=== PATIENT | female | born 1985 | race Caucasian/White ===

== ENCOUNTER 2024-08-27 11:44 | Outpatient (CLI) | payer BC, SELFPAY | END 2024-08-27 11:45 | disposition home or self-care (01) | LOC: LBO 11:46 | PROVIDERS: PCP Obstetrics & Gynecology; Visit Provider Obstetrics & Gynecology | DX: O20.9 Hemorrhage in early pregnancy, unspecified (principal) | CPT/HCPCS: 36415; 84144; 84702 ==

== ENCOUNTER 2024-08-29 11:35 | Outpatient (CLI) | payer BC, SELFPAY | END 2024-08-29 11:36 | disposition home or self-care (01) | LOC: LBO 11:35 | PROVIDERS: PCP Obstetrics & Gynecology; Visit Provider Obstetrics & Gynecology | DX: O26.851 Spotting complicating pregnancy, first trimester (principal) | CPT/HCPCS: 36415; 84702 ==

== ENCOUNTER 2024-09-30 01:59 | Outpatient (CLI) | payer BC, SELFPAY ==
[2024-09-30 16:11] LABS: Abs Immature Grans 0.03 10^3/uL (0.0-0.06); HCT 39.3 % (36.0-46.0); HGB 13.7 g/dL (11.2-15.7); Immature Grans % 0.3 %; MCH 31.8 pg (27.0-33.0); MCHC 34.9 % (32.0-36.0); MCV 91 fL (80-95); MPV 9.7 fL (8.0-11.0); Platelet Count 298 10^3/uL (130-400); RBC 4.31 10^6/uL (3.93-5.22); RDW 11.9 % (11.7-14.6); RDW-SD 39.5 fL; WBC 11.38 10^3/uL (4.4-10.8)
[2024-09-30 16:27] LABS: Hemoglobin A1C 5.4 % (<5.7)
[2024-09-30 17:12] LABS: ALT 34 U/L (14-59); AST 19 U/L (15-37); Albumin 3.7 g/dL (3.4-5.0); Alkaline Phosphatase 82 U/L (46-116); Anion Gap 6.8 mmol/L (3-11); BUN 9 mg/dL (7-18); Bilirubin, Total 0.3 mg/dL (0.2-1.0); CO2 28.2 mmol/L (21.0-32.0); Calcium 9.2 mg/dL (8.5-10.1); Chloride 102 mmol/L (98-107); Estimated GFR 117.75 (mL/min/1.73m2); Glucose 97 mg/dL (74-106); Potassium 4.0 mmol/L (3.5-5.1); Sodium 137 mmol/L (136-145); Total Protein 7.6 g/dL (6.4-8.2)
[2024-10-01 19:31] LABS: HIV-1/2 Ag & Ab Screen Negative (Negative); Hepatitis C Ab w Rflx HCV PCR Negative (Negative)
[2024-10-02 11:43] LABS: Rubella IgG Ab (UVM) Positive (See Note)
[2024-10-04 15:13] LABS: Syphilis IgG w/Reflex Nonreactive (Nonreactive)
== END 2024-09-30 02:00 | disposition home or self-care (01) ==
LOC: LBO 01:59
PROVIDERS: PCP Obstetrics & Gynecology; Visit Provider Advanced Practice Midwife
DX: Z34.91 Encounter for supervision of normal pregnancy, unspecified, first trimester (principal)
CPT/HCPCS: 36415; 80053; 86787; 86803; 86850; 86900; 86901; 87340; 87389; 83036; 85025; 86762; 86780

== ENCOUNTER 2024-09-30 13:57 | Outpatient (REF) | payer BC, SELFPAY ==
[2024-10-02 11:27] LABS: Chlamydia Result Negative (Negative); GC Result Negative (Negative)
== END 2024-09-30 13:58 | disposition home or self-care (01) ==
LOC: LBN 13:57
PROVIDERS: PCP Obstetrics & Gynecology; Visit Provider Advanced Practice Midwife
DX: Z34.91 Encounter for supervision of normal pregnancy, unspecified, first trimester (principal)
CPT/HCPCS: 87491; 87591; 87086

== ENCOUNTER 2025-01-01 01:26 | Outpatient (CLI) | payer BC, SELFPAY ==
--- NOTE | 2025-01-01 08:30 | DI.US_ITS ---
Exam(s) US OB TAIWO WEIGHT EXAM: US OB TAIWO WEIGHT CLINICAL HISTORY: growth,uterine scar from previous surgery affecting preg,O34.29. TECHNIQUE: Transabdominal obstetrical ultrasound performed. COMPARISON: US POCUS EXAM from 09/03/2024 Report from exam performed at [facility] [place] 2024. No images are available. FINDINGS:: Number of fetuses: 1 position: Cephalic Placental location: Bilobed, anterior and posterior. Grade 2. no evidence of previa. Two anterior fibroids are noted, 1 measuring 4.7 x 3.1 x 3.2 cm and the other measuring 2.6 x 1.7 x 2.5 cm. BIOMETRIC DATA: BPD: 61 mm = 25+ 0 HC: 237 mm = 25+5 AC: 217 mm = 26+ 1 FL: 43 mm = 24+ 2 EFW: 802 grams, 87th percentile, Composite Age: 20 5+2 weeks SUYAPA: 14 April 2025 Heart Rate: 151 Amniotic fluid index: 18.5. Visually, amount of fluid is within normal limits. IMPRESSION: size and weight are within the expected range. A bilobed percent is noted with components anteriorly and posteriorly. The placenta is otherwise unremarkable. DATA REPOSITORY:
== END 2025-01-01 01:46 ==
PROVIDERS: PCP Nurse Practitioner; Visit Provider Obstetrics & Gynecology
DX: O34.29 Maternal care due to uterine scar from other previous surgery (principal)
CPT/HCPCS: 76816

== ENCOUNTER 2025-01-16 01:26 | Outpatient (CLI) | payer BC, SELFPAY ==
[2025-01-16 15:34] LABS: Abs Immature Grans 0.19 10^3/uL (0.0-0.06); HCT 33.0 % (36.0-46.0); HGB 11.3 g/dL (11.2-15.7); Immature Grans % 1.3 %; MCH 32.1 pg (27.0-33.0); MCHC 34.2 % (32.0-36.0); MCV 94 fL (80-95); MPV 9.2 fL (8.0-11.0); Platelet Count 265 10^3/uL (130-400); RBC 3.52 10^6/uL (3.93-5.22); RDW 12.9 % (11.7-14.6); RDW-SD 44.1 fL; WBC 14.55 10^3/uL (4.4-10.8)
[2025-01-16 15:53] LABS: Glucose,1 Hr (Glucola) 177 mg/dL (80-140)
== END 2025-01-16 01:27 | disposition home or self-care (01) ==
LOC: LBO 01:27
PROVIDERS: PCP Nurse Practitioner; Visit Provider Obstetrics & Gynecology
DX: Z34.93 Encounter for supervision of normal pregnancy, unspecified, third trimester (principal)
CPT/HCPCS: 36415; 82950; 85025

== ENCOUNTER 2025-01-24 02:38 | Outpatient (CLI) | payer BC, SELFPAY | END 2025-01-24 02:39 | disposition home or self-care (01) | LOC: LBO 02:38 | PROVIDERS: PCP Nurse Practitioner; Visit Provider Obstetrics & Gynecology | DX: Z34.92 Encounter for supervision of normal pregnancy, unspecified, second trimester (principal) | CPT/HCPCS: 36415; 82951 ==

== ENCOUNTER → 2025-02-05 01:31 | Outpatient (CLI) | payer BC, SELFPAY ==
--- NOTE | 2025-02-05 12:30 | DI.US_ITS ---
Exam(s) US OB TAIWO WEIGHT EXAM: US OB TAIWO WEIGHT CLINICAL HISTORY: abnormal placenta,O43.109. TECHNIQUE: Transabdominal obstetrical ultrasound performed. COMPARISON: US US OB TAIWO WEIGHT from 01/01/2025 FINDINGS: Number of fetuses: 1 position: BREECH Placental location: There is a grade 1 placenta. The placenta is bilobed with component seen anteriorly and posteriorly. There is a marginal cord insertion site. The cord inserts 9 mm from the edge of the posterior placental component. No evidence of previa. Note is again made of an anterior uterine fibroid. BIOMETRIC DATA: BPD: 7.68cm, 30weeks 6days HC: 28.19cm, 30weeks 6days AC: 26.43cm, 30weeks 4days FL: 5.76cm, 30weeks 1day EFW: 1,581.51g, 3lb 8.47oz, 79.9% Composite Age: 30weeks 4days SUYAPA: 04/12/2024 Heart Rate: 138bpm Amniotic fluid index: 19.7cm. The largest pocket measures 5.9 cm. IMPRESSION: 1. Single live intrauterine gestation as above. 2. Estimated weight is 1582gms. This is the 80th percentile. 3. Amniotic fluid index is 20 cm. The largest pocket measures 5.9 cm. 4. There is a bilobed placenta again noted with both anterior and posterior components. 5. There is a marginal cord insertion site onto the posterior placental component. DATA REPOSITORY:
== END ==
PROVIDERS: PCP Nurse Practitioner; Visit Provider Obstetrics & Gynecology
DX: O43.103 Malformation of placenta, unspecified, third trimester (principal); Z3A.30 30 weeks gestation of pregnancy
CPT/HCPCS: 76816

== ENCOUNTER → 2025-02-26 00:20 | Outpatient (CLI) | payer BC, SELFPAY ==
--- NOTE | 2025-02-26 07:30 | DI.US_ITS ---
Exam(s) US OB TAIWO WEIGHT EXAM: US OB TAIWO WEIGHT CLINICAL HISTORY: Growth/fluid, advanced maternal age, gest diabetes, abnl placenta. TECHNIQUE: Transabdominal obstetrical ultrasound performed. COMPARISON: US US OB TAIWO WEIGHT from 02/05/2025 FINDINGS:: Number of fetuses: 1 position: BREECH Placental location: BILOBED. No evidence of previa. BIOMETRIC DATA: BPD: 8.55cm mm = 34weeks 3days, 93 percent HC: 31.8cm mm = 35weeks 5days, 93 percentile AC: 32.02cm mm = 36weeks greater than 97th percentile FL: 5.97cm mm = 31weeks 1day, 11th percentile EFW: 2,447.22g, 5lb 9.1oz, 95.6% Composite Age: 34weeks 2days SUYAPA: 04/07/2024 Heart Rate: 144bpm Amniotic fluid index: 18.9cm. Visually, amount of fluid is within normal limits. Anterior uterine fibroid again noted. Marginal cord insertion and is again noted. IMPRESSION: size is measuring 2 weeks greater than gestational age. weight is at the 96th percentile. DATA REPOSITORY:
== END ==
LOC: DI 00:20
PROVIDERS: PCP Nurse Practitioner; Visit Provider Obstetrics & Gynecology
DX: Z34.93 Encounter for supervision of normal pregnancy, unspecified, third trimester (principal); O26.23 Pregnancy care for patient with recurrent pregnancy loss, third trimester; O34.33 Maternal care for cervical incompetence, third trimester; O24.419 Gestational diabetes mellitus in pregnancy, unspecified control; O43.103 Malformation of placenta, unspecified, third trimester
CPT/HCPCS: 76816

== ENCOUNTER 2025-03-05 07:43 | Outpatient (CLI) | payer BC, SELFPAY ==
[2025-03-05 12:49] VITALS: BP 124/87; PULSE 95; TEMP 36.5
[2025-03-05 12:58] VITALS: BP 124/87; PULSE 95
[2025-03-05 13:09] VITALS: BP 124/87; PULSE 95; TEMP 36.6
[2025-03-05 13:34] VITALS: BP 124/87; PULSE 95
--- NOTE | 2025-03-05 13:34 | W.OBNST ---
Date of service: 03/05/25 Time of Service: 13:34 NST Evaluation Reason for NST Reasons for Nonstress Test: GDM-INSULIN and ADVANCED MATERNAL AGE Gestational Age Gestational Age in Weeks and Days: 33 Weeks and 2Days Test and Monitor Explained Test/Monitor Explained: Test Explained, Monitor Explained and Patient Verbalized Understanding Vital Signs Blood Pressure: 124/87 Pulse: 95 NST Information Date on Monitor: 03/05/25 Time on Monitor: 12:52 NST Interventions: PO Hydration Contraction Frequency: 2-5 NST Evaluation Patient States Movement: Present Variability: Moderate 6-25 bpm Accelerations: 15x15 Note Ultrasound Done: N/A. NST Note Note: Category 1, reactive NST. Occasional uterine activity. visit also performed. NST Reviewed and Verified by: Lisa Bashir
== END 2025-03-05 13:54 ==
LOC: BCD 07:43 → OBS 12:48
PROVIDERS: PCP Nurse Practitioner; Visit Provider Obstetrics & Gynecology
DX: O24.414 Gestational diabetes mellitus in pregnancy, insulin controlled (principal); O09.513 Supervision of elderly primigravida, third trimester; Z3A.33 33 weeks gestation of pregnancy
CPT/HCPCS: 59025

== ENCOUNTER 2025-03-11 07:59 | Outpatient (CLI) | payer BC, SELFPAY ==
[2025-03-11 10:07] VITALS: BP 148/87; PULSE 105
[2025-03-11 10:08] VITALS: BP 127/80; PULSE 96
[2025-03-11 10:22] VITALS: BP 127/80; PULSE 96; TEMP 36.7
[2025-03-11 10:28] VITALS: BP 125/77; PULSE 97
[2025-03-11 17:54] VITALS: BP 127/80; PULSE 96; TEMP 36.7
--- NOTE | 2025-03-11 17:54 | W.OBNST ---
Date of service: 03/11/25 Time of Service: 10:00 NST Evaluation Reason for NST Reasons for Nonstress Test: GDM-INSULIN Gestational Age Gestational Age in Weeks and Days: 34 Weeks and 1Days Test and Monitor Explained Test/Monitor Explained: Test Explained, Monitor Explained and Patient Verbalized Understanding Vital Signs Blood Pressure: 127/80 Pulse: 96 Temperature: 98.1 F Weight: 186 lb 6.4 oz Urine Results Urine Protein: Negative Urine Ketones: Negative Urine Glucose: Negative Urine Blood: Negative NST Information Date on Monitor: 03/11/25 Time on Monitor: 10:00 Date off Monitor: 03/11/25 Time off Monitor: 10:25 Total Time on Monitor: 25 NST Interventions: PO Hydration and Notify Provider Contraction Frequency: Occasional NST Evaluation Patient States Movement: Present FHR Baseline: 145 Variability: Moderate 6-25 bpm Accelerations: 15x15 Decelerations: None NST Results: Reactive Note Ultrasound Done: N/A. NST Note NST Reviewed and Verified by: Laura Smith
== END 2025-03-11 10:37 ==
LOC: BCD 07:59 → OBS 09:57
PROVIDERS: PCP Nurse Practitioner; Visit Provider Obstetrics & Gynecology
DX: O24.414 Gestational diabetes mellitus in pregnancy, insulin controlled (principal); Z3A.34 34 weeks gestation of pregnancy
CPT/HCPCS: 59025